=== PATIENT | female | born 1965 ===

== ENCOUNTER 2021-08-10 09:32 | Emergency (ER) | payer BC, OTHER ==
--- NOTE | 2021-08-10 10:12 | ED EENT ---
History of Present Illness General Chief Complaint: Ear Problems Stated Complaint: LT EAR PAIN Nursing Triage Note: Patient presents to the ED with c/o left ear pain, swelling, and redness. Reports symptoms began 2 days ago. Source: patient Exam Limitations: no limitations History of Present Illness Date Seen by Provider: August 10, 2021 Time Seen by Provider: 09:30 Initial Comments Patient is a 56-year-old female with history of recurrent ear infections who presents with tenderness and swelling to the left outer earlobe. Symptoms began 2 days ago. Pain is rated moderate to severe and is described as sharp. Is worse with palpation. Patient denies recent water or chemical exposure. She has been treating it with peroxide and Motrin which have been helpful. She does not have any rash. She denies change of hearing, otorrhea or tinnitus. No foreign body sensation. No other acute symptoms or complaints. Patient is nondiabetic Timing/Duration: gradual Location: ear (L) Prearrival Treatment: other Associated Symptoms: other Allergies and Home Medications Allergies Coded Allergies: Penicillins (Verified Allergy, Unknown, 08/10/21) Patient Home Medication List Home Medication List Reviewed: Yes Review of Systems Review of Systems Constitutional: see HPI Eyes: See HPI Ears: See HPI Mouth: see HPI Throat: see HPI Past Hawlvse-[id number]-[id number] Hx Patient Social History Tobacco Use?: No Substance use?: No Alcohol Use?: No Pt feels they are or have been: No Past Medical History Surgery/Hospitalization HX: Arthritis Physical Exam Vital Signs Vital Signs - First Documented 08/10/21 09:54 Temp 36.3 Pulse 68 Resp 18 B/P (MAP) 116/89 (98) Pulse Ox 98 O2 Delivery Room Air Height, Weight, BMI Height: '" Weight: lbs. oz. kg; BMI Method: General Appearance: WD/WN, no apparent distress Eyes: bilateral eye normal inspection, bilateral eye EOMI Ears: left ear TM normal, left ear TM perforation (Tenderness and swelling to tragus. Minimal debris and tenderness in canal) Nose: normal inspection Progress/Results/Core Measures Results/Orders Vital Signs/I&O 08/10/21 09:54 Temp 36.3 Pulse 68 Resp 18 B/P (MAP) 116/89 (98) Pulse Ox 98 O2 Delivery Room Air Blood Pressure Mean: 98 Departure Communication (Admissions) Recommendations are ibuprofen and topical antibiotics with PCP follow-up as needed Impression Primary Impression: Otitis externa Disposition: HOME, SELF-CARE Condition: Stable Departure-Patient Inst. Decision time for Depature: 10:09 Referrals: NO,LOCAL PHYSICIAN (PCP/Family) Primary Care Physician Patient Instructions: Outer Ear Infection (DC) Add. Discharge Instructions: Please insert wick and take newly prescribed antibiotics as directed. Follow-up with your PCP as needed. Return to the ED if new or worsening symptoms. All discharge instructions reviewed with patient and/or family. Voiced understanding. Scripts Ofloxacin (Floxin (Non-Formulary)) 0.3 % Drops 3 DROPS OS BID for 5 Days, DROPS 3 Refills Prov: RIAZ WONG DO 08/10/21 RIAZ WONG DO August 10, 2021 10:12
[2021-08-10] MEDS ORDERED: OFLO5DRO33 OS (10:14)
[2021-08-10 10:30] VITALS: BP 116/89
== END 2021-08-10 10:22 | disposition home or self-care (01) ==
LOC: ER FS 09:34
DX: H60.92 Unspecified otitis externa, left ear (principal)
CPT/HCPCS: 99282